=== PATIENT | female | born 1950 | race Caucasian/White ===

== ENCOUNTER → 2024-09-28 | Outpatient (CLI) | payer MEDICARE, OTHER ==
[2024-09-28 12:40] LABS: Partial Thromboplastin Time 23.3 sec (22.0-30.0); Prothrombin Time 11.5 sec (10.0-12.5)
[2024-09-28 15:02] LABS: HCT 47.4 % (37.2-46.3); HGB 15.3 g/dL (12.0-15.0); MCH 30.7 pg (27.0-32.0); MCHC 32.3 g/dL (32.0-37.0); Mean Platelet Volume 10.8 FL (9.5-12.2); NRBC Per 100 WBC 0 X 10*3/uL (0.00-0.01); Platelet Count 250 X 10*3/uL (140-440); RBC 4.99 X 10*6/uL (4.10-5.20); RDW 13.5 % (11.5-14.5); WBC 7.74 X 10*3/uL (4.50-10.00)
[2024-09-28 19:13] LABS: ALT 16 U/L (8-44); AST 41 U/L (13-35); Albumin 3.8 g/dL (3.8-4.9); Albumin/Globulin Ratio 1.23 Ratio (1.60-3.17); Alkaline Phosphatase 107 U/L (41-126); Blood Urea Nitrogen 29.3 mg/dL (9.0-27.0); Calcium 9.3 mg/dL (8.7-10.3); Carbon Dioxide 23.6 mmol/L (21.6-31.8); Chloride 101 mmol/L (96-109); Globulin 3.1 g/dL (1.6-3.3); Glucose 99 mg/dL (70-110); Potassium 5.2 mmol/L (3.5-5.5); Sodium 138 mmol/L (135-145); Total Bilirubin 0.4 mg/dL (0.3-1.2); Total Protein 6.9 g/dL (6.2-8.2)
== END | disposition home or self-care (01) ==
LOC: LABPAT 11:47
PROVIDERS: ATTEND Orthopaedic Surgery
DX: Z01.818 Encounter for other preprocedural examination (principal); Z22.322 Carrier or suspected carrier of Methicillin resistant Staphylococcus aureus; M17.12 Unilateral primary osteoarthritis, left knee
CPT/HCPCS: 80053; 85027; 85610; 85730; 87070; 93005

== ENCOUNTER 2024-10-17 08:09 | Observation (INO) | payer MEDICARE, OTHER ==
[2024-09-28 14:37] VITALS: BMI 57.8
[~2024-10-17 08:09] MED LIST: ACETAMINOPHEN TAB 500 MG TAB PO PRN; GABAPENTIN 300 MG CAP PO PRN; MELOXICAM 7.5 MG TAB PO PRN; TRANEXAMIC 1,000 MG/100ML-NACL 1,000 MG in SALINE 1 100ML.BAG IVPB PRN; ceFAZolin 3 GM in SODIUM CHLORIDE 0.9% 100 ML IVPB PRN
[2024-10-17] MEDS: MELOXICAM 7.5 MG TAB PO PRN (08:37)
[2024-10-17] MEDS: ACETAMINOPHEN TAB 500 MG TAB PO PRN (08:37)
[2024-10-17] MEDS: IV FLUID CONTINUATION 1,000 ML IV ONE ×2 (08:40→12:57)
[2024-10-17 08:45] LABS: Glucose,Whole Blood 106 mg/dL (70-110)
[2024-10-17] MEDS ORDERED: NALOXONE 0.4 MG/ML 1 ML VIAL IV PRN (08:45)
[2024-10-17] MEDS ORDERED: MAGNESIUM HYDROXIDE 2,400 MG/30 ML CUP PO PRN (08:45)
[2024-10-17] MEDS ORDERED: bisacodyL 10 MG SUPP RECTAL PRN (08:45)
[2024-10-17] MEDS ORDERED: HYDROmorphone 0.5 MG/0.5 ML SYRINGE IVP PRN ×2 (08:45)
[2024-10-17] MEDS ORDERED: NA PHOS,M-B/NA PHOS,DI-BA 133 ML ENEMA RECTAL PRN (08:45)
[2024-10-17] MEDS: MIDAZOLAM 2 MG/2 ML VIAL IVP ONE (08:49)
[2024-10-17] MEDS: DEXAMETHASONE SOD PHOSPHATE 4 MG/ML 1 ML VIAL IVP STA (08:57)
[2024-10-17] MEDS: ONDANSETRON 4 MG/2 ML VIAL IVP STA (08:59)
[2024-10-17] MEDS ORDERED: TRANEXAMIC 1,000 MG/100ML-NACL PREMIX BAG ONE (09:02)
[2024-10-17] MEDS: ceFAZolin 3 GM in SODIUM CHLORIDE 0.9% 100 ML IVPB PRN (09:02)
[2024-10-17] MEDS ORDERED: MIDAZOLAM 2 MG/2 ML VIAL ONE (09:02)
[2024-10-17] MEDS ORDERED: PHENYLEPHRINE 10 MG/ML VIAL ONE (09:02)
[2024-10-17] MEDS ORDERED: PROPOFOL 10 MG/ML 20 ML VIAL IV ONE (09:02)
[2024-10-17] MEDS: ceFAZolin 1,000 MG in SODIUM CHLORIDE 0.9% 1,000 ML IRRIGATION ONE (09:02)
[2024-10-17] MEDS ORDERED: fentaNYL (PF) 50 MCG/ML 2 ML AMP ONE (09:02)
--- NOTE | 2024-10-17 10:26 | P.OP ---
Date of Procedure: 10/17/24 Preoperative Diagnosis: Severe osteoarthritis left knee Postoperative Diagnosis: Severe osteoarthritis left knee Procedure(s) Performed: Left total knee arthroplasty Implants: Quintero [employer] Nephew Journey II CR Oxinium cruciate retaining femoral component size 5, left [employer] Journey nonporous tibial baseplate size 3, left Qu[employer] Journey II, XLPE Deep Dished articular insert, size 9 mm, Size 3- 4, left [employer] Journey Ratna II resurfacing patellar component, oval, 32 mm All components were cemented using Palacos R bone cement The articulation is Oxinium on polyethylene Anesthesia: spinal Surgeon: Juanjose Donato Stoneworker #1: Kayleen Oviedo Estimated Blood Loss (ml): 35 Pathology: none sent Condition: stable Disposition: PACU Indications for Procedure: The patient's knee is end-stage, and conservative management has failed. The operation of knee replacement has been discussed at length in the office, as well as potential risks and complications. These are inclusive of, but not limited to: Infection, bleeding, scarring, discomfort, stiffness, blood vessel and nerve damage, need for further surgery, failure to relieve symptoms, persistence, recurrence, or worsening of problems, loosening, dislocation, wear, blood clot, pulmonary embolism, , gait dysfunction, stiffness, and other risks as discussed in the office. Patient elects to proceed and the consent form has been signed. Operative Findings: The operative findings are consistent with severe osteoarthritis of the left knee Description of Procedure: The patient was seen in the preoperative area, the consent was reviewed and the operative site was marked with a skin marker. The patient verified the procedure and the operative site. The patient was then brought to the operating room and positioned on the operating room table in the supine position. Preoperative antibiotics and a gram of tranexamic acid were given intravenously. A spinal anesthetic was administered by the anesthesia department. Care was taken to make sure that all pressure points were adequately padded. A tourniquet was placed on the upper thigh and the lower extremity was prepped with ChloraPrep and draped in usual sterile fashion. A universal time-out was then performed which confirmed the patient's name, surgical site, ALLERGIES, and consent. The lower extremity was then exsanguinated and tourniquet was inflated to 250 mmHg. A standard anterior midline approach to the knee was performed. The skin and subcutaneous tissue were sharply dissected down to the patellar tendon. A medial parapatellar arthrotomy was then performed. The knee was then extended, the patellar was everted, and the knee was flexed. The infra-patellar fat pad was removed in order to enhance exposure. The anterior horns of both menisci were excised, and a release was performed to the posterior medial aspect of the knee. On gross visual inspection, there was complete loss of articular cartilage in the medial and patellofemoral joint spaces. There was also significant cartilage damage in the lateral compartment. There were multiple periarticular osteophytes globally about the knee which were then removed with a Ronguer. The femoral canal was then opened with the 9.5 mm intramedullary drill. The 8 mm intramedullary margy was then inserted into the femoral canal with the distal femoral cutting guide set for 5 of valgus. The distal femoral cutting block was then pinned in place. The intramedullary margy was then removed, and the distal femur was then cut. The cutting block was then removed and the cut was checked for symmetry. The resected bone was then measured to confirm the appropriate distal femoral resection. Next, the sizing guide was then placed and set for 3 external rotation based off of the epicondylar axis and Marcus's line. Pins were then placed and the drill holes, and the femur was sized with the sizing stylus. The pins were then removed, and the sizing guide was then removed. The spikes of the appropriate size femoral block was then placed into the predrilled holes, and malleted into place. Two 45 mm pins were then placed into the fixation holes on the cutting block. An sharon wing was then used to ensure there would be no notching with the anterior cut. The anterior condyles were cut without notching. The anterior chord cut was then performed, followed by the posterior cut, posterior chamfer cut, and the anterior chamfer cut. The collateral ligaments were protected during the entire process. The cutting block was then removed. Any remaining bone and osteophytes were removed from the femur with a Ronguer. Attention was then directed to the tibia. The remaining ACL was removed with a Ronguer, and the tibia was then gently subluxed forward with a large bent knee retractor. Any remaining menisci were excised. The posterior lateral corner was cauterized in order to coagulate the lateral geniculate artery. The extra medullary tibial cutting guide was then placed, set for the appropriate rotation, slope, and depth of resection. The proximal tibia cutting guide was then pinned in place. Proximal tibia was then cut and sized. A curved osteotome was then used to remove any posterior osteophytes from the distal femur. The femoral trial was placed. A narrow saw blade was then used to remove the anterior intracondylar femoral bone. The CR notch trial was then placed. The tibial trial was placed with the appropriate-sized insert. The knee was able to fully extend and flex to 130 and was stable throughout all range of motion. The knee was then extended and the patella was everted. Patella was then measured, and then using an osteotomy guide, the patella was cut at the appropriate level. The patellar component was sized. The patellar drill guide was placed and the patella was drilled. The patella trial was then placed. The knee was then taken through range of motion with the patella trial and the patella tracked normally using the no thumbs technique. The patella trial was then removed. The knee was then flexed and lug holes were drilled through the femoral trial and the femoral trial was then removed. The tibial was then re- exposed, and the tibial broach guide was then pinned in place after it was set for the appropriate rotation to allow for the most coverage without overhang. The tibia was then reamed and broached. The femoral canal was plugged with autologous bone. The cut surfaces of bone were then irrigated with pulsatile lavage. The knee was also irrigated with Irr isept solution. The components were then opened, the cement was mixed. Cement was placed on the backside of the femoral, tibial, and patellar components. Cement was then applied to the tibial surface and pressurized into the surface using finger pressurization technique. The tibial component was then applied and excess cement was removed after it was impacted securely noted to be flush with the cut surface. In similar fashion, the cement was applied to the cut femoral surface, pressurized and using finger pressurization the component was impacted in place. Excess cement was removed. The polyethylene spacer was then implanted and locked into position. Patellar component was then applied in a similar technique and the patellar clamp was used to hold patella in place while the cement hardened. The knee was held in full extension while the cement hardened. Once the cement had fully hardened, the knee was reinspected. Any other cement extrusion was removed the final range of motion testing showed range of motion from 0-130 with excellent stability, both medial and laterally and appropriate alignment of the leg. Patella tracked normally. After the cemented hardened, the tourniquet was released and hemostasis was obtained. A second gram of transexamic acid was given intravenously. The knee was again irrigated. The knee was again taken through range of motion and found to be stable throughout all range of motion of 0-130, and the patella tracked normally. The fascia was then closed with 0 Vicryl followed by #2 strata fix suture. The subcutaneous tissue was closed with 3-0 Vicryl and 3-0 monocryl. Exofin glue was used for the skin and placed with the knee in flexion. After the glue had dried, and Optafoam silver impregnated dressing was applied. A lightly compressive dressing was applied using web roll and Ukldeep wrap. Patient was then transferred to the stretcher and taken to recovery room in stable condition. Sponge and needle counts were correct. The animal assistant GLORIA Long was required due the complexity surgery and the need for a skilled surgical garment assembly supervisor. She assisted in positioning, draping, retraction, and closure of the wound.
[2024-10-17] MEDS: ePHEDrine 50 MG/ML 1 ML VIAL IVP STA (12:04)
--- NOTE | 2024-10-17 12:11 | XR ---
EXAMINATION TYPE: XR knee limited LT DATE OF EXAM: 10/17/2024 COMPARISON: NONE CLINICAL INDICATION: Female, 74 years old with history of Evaluation for Postop abnormality and align ment; TECHNIQUE: 2 views FINDINGS: Images show placement of left total knee arthroplasty. Both distal femoral and proximal tib ial components of the prosthesis are well seated without periprosthetic fracture. Alignment grossly a natomic. Anterior soft tissue swelling with scattered soft tissue air as well as intra-articular air related to recent operation. IMPRESSION: Uncomplicated postoperative appearance left total knee arthroplasty. [facility], Workstation: [facility], 10/17/2024 12:09 PM
[2024-10-17] MEDS: HYDROmorphone 0.5 MG/0.5 ML SYRINGE IVP PRN ×2 (12:56→16:10)
[2024-10-17 13:13] LABS: Glucose,Whole Blood 137 mg/dL (70-110)
[2024-10-17] MEDS ORDERED: DEXTROSE 50% SYRINGE 50 ML IVP PRN ×2 (13:35)
[2024-10-17] MEDS: LACTATED RINGERS 1,000 ML IV SCH (13:40)
[2024-10-17] MEDS: SODIUM CHLORIDE 0.9% 1,000 ML IV SCH (13:40)
[2024-10-17] MEDS ORDERED: diphenhydrAMINE 25 MG CAP PO PRN (13:47)
[2024-10-17] MEDS: HYDROcodone/APAP 7.5-325MG 1 EACH TAB PO PRN (13:53)
[2024-10-17 16:39] LABS: Glucose,Whole Blood 202 mg/dL (70-110)
[2024-10-17] MEDS: ceFAZolin 3 GM in SODIUM CHLORIDE 0.9% 100 ML IVPB SCH (17:36)
[2024-10-17] MEDS: CARBIDOPA-LEVODOPA 25-100 MG 1 EACH TAB PO SCH (17:36)
[2024-10-17] MEDS: INSULIN ASPART (NovoLOG) 100 UNIT/ML VIAL SQ SCH (17:37)
[2024-10-17] MEDS: SENNOSIDES-DOCUSATE SODIUM 1 EACH TAB PO SCH (20:39)
[2024-10-17] MEDS: ASPIRIN 325 MG TAB PO SCH (20:42)
[2024-10-17] MEDS: GABAPENTIN 300 MG CAP PO SCH (20:42)
[2024-10-17] MEDS ORDERED: NON FORMULARY DRUG (Vitamin B Complex [Vitamin B Complex] 1 EACH Capsule) PO SCH (21:00)
[2024-10-17 21:12] LABS: Glucose,Whole Blood 164 mg/dL (70-110)
[2024-10-18] MEDS: GABAPENTIN 300 MG CAP PO PRN (00:39)
--- NOTE | 2024-10-18 03:24 | CONS ---
CONSULTATION REASON FOR CONSULTATION: Advice regarding diabetes mellitus, other medical issues, requested by Orthopedic Surgery. HISTORY OF PRESENT ILLNESS: This is a 74-year-old woman with a past medical history of diabetes, hypertension, sleep apnea, who was admitted after left total knee arthroplasty. There is no history of any fever, rigors, chills, headaches, loss of consciousness, or seizures. PAST MEDICAL HISTORY: Diabetes mellitus, hypertension, sleep apnea. Rest of the history and rest of the chart is also reviewed. HOME MEDICATIONS: Reviewed include Norvasc. Doses and rest of medications reviewed. ALLERGIES: Reviewed include Keflex. FAMILY HISTORY: No history of heart disease or strokes in the family. SOCIAL HISTORY: Remote history of smoking. REVIEW OF SYSTEMS: Fourteen-point review of systems is negative except as mentioned earlier. PHYSICAL EXAMINATION: VITAL SIGNS: Pulse is 73, blood pressure 112/71, respirations 16. HEENT: Conjunctivae normal. NECK: No JVD. CARDIOVASCULAR: S1, S2 muffled. RESPIRATIONS: Breath sounds diminished at the bases. No rhonchi or crackles. ABDOMEN: Soft. LEGS: Status post surgery. NERVOUS SYSTEM: Nonfocal. LABORATORY DATA: Accu-Cheks 137. ASSESSMENT: 1. Status post left total knee joint arthroplasty. 2. Diabetes mellitus, type 2. 3. Hypertension. 4. History of sleep apnea. 5. Remote history of nicotine dependence. 6. Right humera Parkinson's. RECOMMENDATIONS AND DISCUSSION: This is a 74-year-old woman, who presented after surgery. At this time, the patient is medically stable. I would recommend to resume home medications. Recommended to continue with Sinemet, carbidopa, levodopa, and rest of the medications. Monitor closely. DVT prophylaxis. Monitor blood sugars closely. Recommend close followup with primary physician. MMODL / IJN: [id number] /
[2024-10-18 06:24] LABS: Glucose,Whole Blood 127 mg/dL (70-110)
[2024-10-18] MEDS: VIT A,C & E-LUTEIN-MINERALS 1 EACH TAB PO SCH (08:42)
[2024-10-18] MEDS: ATORVASTATIN 10 MG TAB PO SCH (08:42)
[2024-10-18] MEDS: CHOLECALCIFEROL 25 MCG (1000 IU) TABLET PO SCH (08:42)
[2024-10-18] MEDS: lisinopriL 20 MG TAB PO SCH (08:42)
[2024-10-18] MEDS: BISOPROLOL-HCTZ 5-6.25 MG 1 EACH TAB PO SCH (08:42)
[2024-10-18] MEDS: BUMETANIDE 1 MG TAB PO SCH (08:43)
[2024-10-18] MEDS: amLODIPine 10 MG TAB PO SCH (08:43)
[2024-10-18 08:54] LABS: HCT 38.2 % (37.2-46.3); HGB 12.6 g/dL (12.0-15.0); MCH 31.6 pg (27.0-32.0); MCV 95.7 FL (80.0-97.0); NRBC Per 100 WBC 0 X 10*3/uL (0.00-0.01); Platelet Count 203 X 10*3/uL (140-440); RBC 3.99 X 10*6/uL (4.10-5.20); RDW 13.2 % (11.5-14.5); WBC 11.01 X 10*3/uL (4.50-10.00)
[2024-10-18 08:55] LABS: Basophils # (A) 0.02 X 10*3/uL (0.00-0.10); Basophils % (A) 0.2 %; Eosinophils # (A) 0 X 10*3/uL (0.04-0.35); Eosinophils % (A) 0 %; Lymphocytes # (A) 1.06 X 10*3/uL (0.90-5.00); Lymphocytes % (A) 9.6 %; Monocytes # (A) 1.26 X 10*3/uL (0.20-1.00); Monocytes % (A) 11.4 %; Neutrophils # (A) 8.63 X 10*3/uL (1.80-7.70); Neutrophils % (A) 78.4 %
--- NOTE | 2024-10-18 10:26 | P.PN ---
Subjective Progress Note Date: 10/18/24 This is a 74-year-old female who is status post left total knee arthroplasty. This is postoperative day #1 And patient is seen and evaluated at bedside today. Patient states that the left knee is very sore and she did need a lot of assistance with mobilization today. Patient states that she is hoping to discharge to inpatient rehab. Objective - Vital Signs Vital signs: Vital Signs Temp 98 F 10/18/24 07:12 Pulse 68 10/18/24 07:12 Resp 18 10/18/24 07:12 BP 103/67 10/18/24 07:12 Pulse Ox 93 L 10/18/24 07:12 FiO2 Intake & Output 10/17/24 10/18/24 10/18/24 18:59 06:59 18:59 Intake Total 1201 Output Total 35 Balance 1166 Weight 139.1 kg Intake: IV 1201 Output: Estimated Blood Loss 35 Other: # Voids 1 1 - Exam Vital signs are stable. Patient is in no acute distress and is alert and orient ed 3. Calf is soft and nontender to palpation. Dressing is clean, dry, and intact. Patient has full foot and ankle motion without pain or difficulty. Sensation intact. Neurovascular status and circulatory status are intact. - Labs CBC & Chem 7: 10/18/24 03:36 Labs: Abnormal Lab Results - Last 24 Hours (Table) 10/17/24 10/17/24 10/17/24 Range/Units 13:11 16:37 21:06 WBC (4.50-10.00) X 10*3/uL RBC (4.10-5.20) X 10*6/uL Neutrophils # (1.80-7.70) X 10*3/uL Monocytes # (0.20-1.00) X 10*3/uL Eosinophils # (0.04-0.35) X 10*3/uL POC Glucose (mg/dL) 137 H 202 H 164 H (70-110) mg/dL 10/18/24 10/18/24 Range/Units 03:36 06:23 WBC 11.01 H (4.50-10.00) X 10*3/uL RBC 3.99 L (4.10-5.20) X 10*6/uL Neutrophils # 8.63 H (1.80-7.70) X 10*3/uL Monocytes # 1.26 H (0.20-1.00) X 10*3/uL Eosinophils # 0 L (0.04-0.35) X 10*3/uL POC Glucose (mg/dL) 127 H (70-110) mg/dL Assessment and Plan (1) Osteoarthritis of left knee Current Visit: Yes Status: Acute Code(s): M17.12 - UNILATERAL PRIMARY OSTEOARTHRITIS, LEFT KNEE SNOMED Code(s): 142097039049799 (2) S/P total knee arthroplasty Current Visit: Yes Status: Acute Code(s): Z96.659 - PRESENCE OF UNSPECIFIED ARTIFICIAL KNEE JOINT SNOMED Code(s): 1408988819581 Plan: #1 Continue with routine postoperative care and pain control, leave dressing in place for 7 days. #2 Anticoagulation with aspirin. #3 Physical therapy today. #4 Appreciate input from internal medicine. #5 Anticipate discharge to ECF in the next 24-48 hours.
[2024-10-18] MEDS: HYDROcodone/APAP 7.5-325MG 1 EACH TAB PO PRN (10:51)
[2024-10-18] MEDS: KETOROLAC 15 MG/ML 1 ML VIAL IVP PRN (10:51)
[2024-10-18 11:08] LABS: Glucose,Whole Blood 158 mg/dL (70-110)
[2024-10-18 16:23] LABS: Glucose,Whole Blood 160 mg/dL (70-110)
[2024-10-18 20:44] LABS: Glucose,Whole Blood 135 mg/dL (70-110)
--- NOTE | 2024-10-18 23:36 | PN ---
PROGRESS NOTE DATE OF SERVICE: 10/18/2024 SUBJECTIVE: This is a 74-year-old woman, who was admitted after left total knee arthroplasty, is being closely monitored. Swing bed transfer has been considered. No chest pain. No palpitation. OBJECTIVE: VITAL SIGNS: Pulse is 68, blood pressure 103/62, respirations 18. CHEST: Clear to auscultation. CARDIOVASCULAR: S1, S2. ABDOMEN: Soft. LEGS: Status post surgery. LABORATORY DATA: Reviewed. ASSESSMENT: 1. Status post left total knee arthroplasty. 2. Diabetes mellitus, type 2. 3. Hypertension. 4. History of sleep apnea. 5. History of nicotine dependence. 6. Right humera Parkinson's disease. 7. Gait dysfunction. RECOMMENDATIONS: This is a 74-year-old woman, who presented with multiple complex medical issues, we will monitor the patient closely. I would recommend pain management, DVT prophylaxis. I would also recommend rehab at the swing bed because of the multiple complex medical issues, Parkinson's, and the patient's home situation. Further recommendations to follow. MMODL / IJN: [id number] /
[2024-10-19 06:24] LABS: Glucose,Whole Blood 106 mg/dL (70-110)
[2024-10-19 09:30] VITALS: BP 116/64; PULSE 65; RESP 17; TEMP 98.2
[2024-10-19 11:22] LABS: Glucose,Whole Blood 109 mg/dL (70-110)
--- NOTE | 2024-10-19 11:24 | P.DS ---
Providers Date of admission: 10/18/24 07:42 Expected date of discharge: 10/19/24 Attending physician: Juanjose Donato Consults: 10/17/24 08:45 Consult Physician Routine Consulting Provider: Hoda Rashid Consult Reason/Comments: medical management Do you want consulting provider notified?: Yes Primary care physician: Yony Chatterjee - Discharge Diagnosis(es) (1) Osteoarthritis of left knee Current Visit: Yes Status: Acute (2) S/P total knee arthroplasty Current Visit: Yes Status: Acute Hospital Course: This is a 74-year-old female with known history of degenerative arthritis of the left knee. The patient presented for evaluation as an outpatient. After discussion and consideration patient elects to proceed with total knee arthroplasty. The patient is seen preoperatively by Dr. Donato and medically cleared for surgery by their primary care physician. Patient is admitted to [facility] on 10/17/2024 for total knee arthroplasty. The procedure is performed without complication or sequelae. The patient is doing well postoperatively. Labs and vital signs are stable on day of discharge. On day of discharge patient's knee incision is healing well. There is minimal erythema. There is no drainage noted at this time. There is minimal soft tissue swelling to the knee. Patient has full foot and ankle motion without difficulty or pain. Calf is soft and nontender to palpation. Neurovascular status to the left lower extremity is intact. Patient is discharged to rehab in good condition. Please see med rec for accurate list of home medications. Plan - Discharge Summary Discharge Rx Participant: No New Discharge Prescriptions: New Aspirin 325 mg PO BID #60 tab HYDROcodone/APAP 7.5-325MG [Cheney 7.5-325] 1 - 2 tab PO Q6H PRN #32 tab PRN Reason: Pain Sennosides [Senokot] 2 tab PO DAILY PRN #60 tablet PRN Reason: Constipation No Action Bisoprolol/Hydrochlorothiazide [Bisoprolol/Hydrochlorothiazide 5-6.25 mg] 1 tab PO QAM Atorvastatin [Lipitor] 10 mg PO DAILY Vitamin B Complex 1 each PO BID Gabapentin 600 mg PO BID Vit C/E/Zn/Coppr/Lutein/Zeaxan [Preservision Areds 2 Softgel] 1 each PO DAILY Dulaglutide [Trulicity] 1.5 mg SQ MO Acetaminophen [Tylenol Extra Strength] 500 - 1,000 mg PO Q6H PRN PRN Reason: Pain amLODIPine BESYLATE/BENAZEPRIL [amLODIPine BESYLATE/BENAZEPRIL 10-40 mg] 1 tab PO QAM Carbidopa-Levodopa 25-100 mg [Sinemet 25-100] 1 each PO QID Bumetanide [Bumex] 1 mg PO DAILY Cholecalciferol [Vitamin D3 (25 Mcg = 1000 Iu)] 25 mcg PO DAILY Aspirin 81 mg PO DAILY Gabapentin [Neurontin] 300 mg PO DAILY PRN PRN Reason: Pain Discharge Medication List Acetaminophen [Tylenol Extra Strength] 500 - 1,000 mg PO Q6H PRN 09/27/24 [History] Aspirin 81 mg PO DAILY 09/27/24 [History] Atorvastatin [Lipitor] 10 mg PO DAILY 09/27/24 [History] Bisoprolol/Hydrochlorothiazide [Bisoprolol/Hydrochlorothiazide 5-6.25 mg] 1 tab PO QAM 09/27/24 [History] Bumetanide [Bumex] 1 mg PO DAILY 09/27/24 [History] Carbidopa-Levodopa 25-100 mg [Sinemet 25-100] 1 each PO QID 09/27/24 [History] Cholecalciferol [Vitamin D3 (25 Mcg = 1000 Iu)] 25 mcg PO DAILY 09/27/24 [History] Dulaglutide [Trulicity] 1.5 mg SQ MO 09/27/24 [History] Gabapentin 600 mg PO BID 09/27/24 [History] Gabapentin [Neurontin] 300 mg PO DAILY PRN 09/27/24 [History] Vit C/E/Zn/Coppr/Lutein/Zeaxan [Preservision Areds 2 Softgel] 1 each PO DAILY 09/27/24 [History] Vitamin B Complex 1 each PO BID 09/27/24 [History] amLODIPine BESYLATE/BENAZEPRIL [amLODIPine BESYLATE/BENAZEPRIL 10-40 mg] 1 tab PO QAM 09/27/24 [History] Aspirin 325 mg PO BID #60 tab 10/17/24 [Rx] HYDROcodone/APAP 7.5-325MG [Cheney 7.5-325] 1 - 2 tab PO Q6H PRN #32 tab 10/17/24 [Rx] Sennosides [Senokot] 2 tab PO DAILY PRN #60 tablet 10/17/24 [Rx] Follow up Appointment(s)/Referral(s): Juanjose Donato DO [Doctor of Osteopathic Medicine] - 2 Weeks Activity/Diet/Wound Care/Special Instructions: Weightbearing as tolerated with a walker. Leave dressing intact. Dressing may be removed by home care nurse or by patient in 7 days. Then change dressing twice daily until follow up. May shower with initial dressing intact and after removal. If dressing become saturated, please remove. Recommend use of compression stockings daily until follow up to help prevent swelling and blood clots. May remove at night before sleeping. Please take aspirin 325mg twice daily for 30 days to prevent blood clots. [facility] with [facility] and call with any questions or concerns, . Discharge Disposition: TRANSFER TO SNF/ECF
--- NOTE | 2024-10-19 13:53 | P.PN ---
Subjective Progress Note Date: 10/19/24 Patient 74-year-old lady who was admitted for elective left total knee arthroplasty. 10/19. Patient seen examined. Currently doing much better. Patient is being scheduled to go to rehab today REVIEW OF SYSTEMS: CONSTITUTIONAL: No fever, no malaise,. CARDIOVASCULAR: No chest pain, no palpitations, no syncope. PULMONARY: No shortness of breath, no cough, GASTROINTESTINAL: No diarrhea, no nausea, no vomiting, no abdominal pain. NEUROLOGICAL: No headaches, no weakness, PHYSICAL EXAMINATION: GENERAL: The patient is alert and oriented x3, not in any acute distress. Well developed, well nourished. HEENT: Pupils are round and equally reacting to light. EOMI. No scleral icterus. No conjunctival pallor. Normocephalic, atraumatic. No pharyngeal erythema. No thyromegaly. CARDIOVASCULAR: S1 and S2 present. No murmurs, rubs, or gallops. PULMONARY: Chest is clear to auscultation, no wheezing or crackles. ABDOMEN: Soft, nontender, nondistended, normoactive bowel sounds. No palpable organomegaly. MUSCULOSKELETAL: No joint swelling or deformity. Left knee surgical incision seen EXTREMITIES: No cyanosis, clubbing, or pedal edema. NEUROLOGICAL: Gross neurological examination did not reveal any focal deficits. SKIN: No rashes. Assessment and plan Left knee osteoarthritis status post left total knee arthroplasty Hypertension Diabetes mellitus Hyperlipidemia Monitor vital signs Monitor CBC Monitor CMP Continue pain management per orthopedics Continue DVT prophylaxis per orthopedics Resume home meds Patient is medically stable for discharge Labs and medication were reviewed.. Continue same treatment. Continue with symptomatic treatment. Resume home medication. Monitor labs and vitals. DVT and GI prophylaxis. Further recommendations as per clinical course of the patient Dictation was produced using [employer] dictation software. please excuse any grammatical, word or spelling errors. Objective - Vital Signs Vital signs: Vital Signs Temp 98.2 F 10/19/24 08:00 Pulse 65 10/19/24 08:00 Resp 17 10/19/24 08:00 BP 116/64 10/19/24 08:00 Pulse Ox 96 10/19/24 08:00 FiO2 Intake & Output 10/18/24 10/19/24 10/19/24 18:59 06:59 18:59 Other: Voiding Method Toilet # Voids 3 2 - Labs CBC & Chem 7: 10/18/24 03:36 Labs: Abnormal Lab Results - Last 24 Hours (Table) 10/18/24 10/18/24 Range/Units 16:21 20:40 POC Glucose (mg/dL) 160 H 135 H (70-110) mg/dL
== END 2024-10-19 15:30 ==
LOC: OR 08:09 → 4SSUR 10:57 → OR 10-18 07:42 → 4SSUR 10-18 07:42
PROVIDERS: ADMIT Orthopaedic Surgery; ATTEND Orthopaedic Surgery
DX: M17.12 Unilateral primary osteoarthritis, left knee (principal); I11.0 Hypertensive heart disease with heart failure; I50.30 Unspecified diastolic (congestive) heart failure; E11.40 Type 2 diabetes mellitus with diabetic neuropathy, unspecified; G20.A1 Parkinson's disease without dyskinesia, without mention of fluctuations; G47.33 Obstructive sleep apnea (adult) (pediatric); E66.01 Morbid (severe) obesity due to excess calories; Z68.43 Body mass index [BMI] 50.0-59.9, adult; I87.2 Venous insufficiency (chronic) (peripheral); H35.30 Unspecified macular degeneration; E78.5 Hyperlipidemia, unspecified; R26.9 Unspecified abnormalities of gait and mobility; Z79.85 Long-term (current) use of injectable non-insulin antidiabetic drugs; Z79.899 Other long term (current) drug therapy; Z88.5 Allergy status to narcotic agent; Z88.1 Allergy status to other antibiotic agents; Z88.2 Allergy status to sulfonamides; Z87.891 Personal history of nicotine dependence; Z90.49 Acquired absence of other specified parts of digestive tract; Z98.890 Other specified postprocedural states; Z90.710 Acquired absence of both cervix and uterus
CPT/HCPCS: 97116; 97161; 97535; 97166; 85025; 83036; 73560; 27447; G0378 ×2; C1713; C1776; J2250; J1100; J0690 ×3; J2405; J3010; J1885; J2704; J1171 ×2; J2371